=== PATIENT | male | born 1980 | race Caucasian/White ===

== ENCOUNTER 2024-09-27 09:06 | Outpatient (AMB) | payer MEDICAID, SELFPAY ==
[2024-09-27 09:14] VITALS: BP 144/81; PULSE 98; RESP 18; TEMP 36.2; O2SAT 96; BMI 31.1
--- NOTE | 2024-09-27 09:14 | ACNOTE_ITS ---
Vital Signs 09/27/24 09:14 Height 1.75 m Height Method Stated Weight 95.878 kg Weight Measurement Method Standing Scale BMI 31.1 BP 144/81 H Blood Pressure Source Automatic Cuff Blood Pressure Location Left Upper Arm Position Sitting Respiration 18 Pulse 98 Pulse Source Monitor Temp 97.2 F Temp Source Oral Pulse Oximetry (%) 96 Oxygen Delivery Method Room Air Allergies/Meds Allergies & Medications Allergies NKA* Allergy (Uncoded 09/27/24 09:15) Medication Reconciliation No Known Home Medications 09/27/24 [History Confirmed 09/27/24] MA Intake Visit Data Collection New Patient or Established: New Patient (never been to [facility]) Seen by Clinical Staff ONLY (RN/MA): No Pain Present Currently: No Pain scale:: 0 Pain Scale Used: [employer]/Numerical Cone Operator Required: No PCP or OBGYN visit in last 3 months: Yes Hx Now: No Do You Feel Safe at Home: Yes Authorities Contacted: N/A Smoking Status Smoking Status: Never smoker Immunization / Flu Flu Vaccine in the Last 12 Months: No Flu Vaccine Exclusion Criteria: No Exclusion Criteria Past Medical History Social History SMOKING STATUS: Smoking status: Never smoker SECOND HAND EXPOSURE: second hand exposure: No ALCOHOL: Alcohol Intake: Current ALCOHOL FREQUENCY: Alcohol Intake Frequency: holidays/special occasions only HOUSING: Housing: House Patient Portal Questionaires PHQ-9 PHQ-2 Over the last 2 weeks, how often have you been bothered by any of the following problems? 1. Little interest or pleasure in doing things: not at all 2. Feeling down, depressed, or hopeless: not at all Total score: 0 PHQ-9 3. Trouble falling or staying asleep, or sleeping too much: Not at all 4. Feeling tired or having little energy: Not at all 5. Poor appetite or overeating: Not at all 6. Feeling bad about yourself - or that you are a failure or have let yourself or your family down: Not at all 7. Trouble concentrating on things, such as reading the newspaper or watching television: Not at all 8. Moving or speaking so slowly that other people could have noticed? - Or the opposite - being so fidgety or restless that you have been moving around a lot more than usual: not at all 9. Thoughts that you would be better off or of hurting yourself in some way: Not at all Total score: 0 If you checked off any problems, how difficult have these problems made it for you to do your work, take care of things at home, or get along with other people?: not difficult at all Source: Developed by Drs. Josias Hammond, Lanette Babcock, Feliciano Lundberg and colleagues, with an educational nik from [employer]. Depression screen completed yes Social History Living Situation History Marital Status: Single Lives With: Family Housing: House Tobacco History Smoking Status: Never smoker Second Hand Smoke Exposure: No Alcohol History Alcohol Intake: Current Alcohol Intake Frequency: holidays/special occasions only Domestic Abuse History Do You Feel Safe at Home: Yes Review of Systems Report any current symptoms Only answer those that you have currently: Past Medical History Past Medical History Have you ever been diagnosed with any of the following: History of Present Illness HPI Narrative 44 y/o M with PMHx significant for prediabetes, HTN presents to office requesting a second opinion. Patient complained of recent history night sweats, weight loss, concern for TB. Patient was seen and tested by PCP at [facility], was told results were negative. At time of presentation, symptoms have resolved. Patient does note recent weight loss, estimated 50 pounds over 2-3 months, however patient started dieting when weight loss started. Patient denies any cough, hemoptysis, or known exposures. Admits to frequent concerns over potential illness. Review of Systems Review of Systems Systems Reviewed: All systems reviewed, normal except as documented Objective/Exam Narrative Physical exam: PE: Gen: Well-developed and well-nourished. HEENT: NCAT, PERRLA, EOMI, MMM, anicteric conjunctivae. CVS: normal S1 and S2. RRR. No M/R/G. Resp: CTA B/L. No rhonchi, rales, crackles or wheezing. Abd: soft, non-tender, non-distended. BS+ in all 4 quadrants. MSK: Good ROM in BUE & BLE. No edema or rash. Neuro: CN II-XII grossly intact. Strength 5/5 in BUE & BLE. Alert and oriented x3. Psych: appropriate mood and affect. Assessment & Plan Diagnosis / Problem List (1) Night sweats: Status: Acute Assessment & Plan: Patient presents with complaint of night sweats and weight loss for 2-3 months. Night sweats resolved 2 weeks ago. Patient seen at [facility], tested negative for TB. Weight loss likely related to dieting, patient reports changing diet to lose weight just before weight loss started. Plan: Reassurance provided No test needed at this time, patient recently tested Additional Assessment Plan of care discussed with attending Dr. Neves. Rich Ortiz MD PGY-1 Office Procedures [facility] Level of Care Nursing/Assessment Patient Status: Initial/New Patient Nursing Assessment/Reassessment: BP Monitoring, Medication Reconciliation and Update PMH in EMR Coordination of Care: Complex Care and Chronic Disease 1-5, Education Complex Pt/Fam, Consent,records obtained, informed consent, Lab and Imaging orders and Staff clarify orders New Patient Charge New Patient Point Assignment: 1104 New Patient Point Charge: JOB TRAINER Level 3 ([id number]) TB Screening LTBI Screening: Has patient traveled, was born, or resided for at least 1 month, or frequent border crossing into a country with an elevated TB rate: No Immunosuppression, current or planned (HIV, organ transplant, treated with biologic agents, steroids, or other immunosuppression medication): No Close contact to someone with infectious TB disease during lifetime: No Homelessness or incarceration, current or past: No TB testing indicated at this time (at least 1 yes above): No
== END 2024-09-27 10:12 | disposition home or self-care (01) ==
LOC: HODAHC 09:06
PROVIDERS: Supervising Provider Internal Medicine
DX: R61 Generalized hyperhidrosis (principal); R63.4 Abnormal weight loss; Z68.31 Body mass index [BMI] 31.0-31.9, adult
CPT/HCPCS: 99203; G0463